=== PATIENT | male | born 1990 | race Caucasian/White ===

== ENCOUNTER 2020-11-17 17:46 | Emergency (ER) | payer OTHER ==
[~2020-11-17] VITALS: Ht 177.8 cm; Wt 95.3 kg
[2020-11-17] MEDS ORDERED: IBUPROFEN 800800 MG PO (18:30)
[2020-11-17] MEDS ORDERED: BACTRIM DS TAB1 EACH PO (18:30)
[2020-11-17] MEDS ORDERED: CEPHALEXIN500 MG PO (18:30)
[2020-11-17 18:37] VITALS: BP 132/82
== END 2020-11-17 18:37 | disposition home or self-care (01) ==
LOC: M.ERS 17:46
DX: L03.114 Cellulitis of left upper limb (principal); Z88.0 Allergy status to penicillin